=== PATIENT | female | born 1995 | race Caucasian/White ===

== ENCOUNTER 2020-04-23 10:42 | Emergency (ER) | payer OTHER ==
[~2020-04-23] VITALS: Ht 144.8 cm; Wt 70.3 kg
[2020-04-23 10:53] VITALS: BP 127/87
--- NOTE | 2020-04-23 11:06 | NUR ---
PT TAKEN TO BED 4.
[2020-04-23 13:04] VITALS: BP 120/80
== END 2020-04-23 13:00 | disposition home or self-care (01) ==
LOC: MED 10:42
DX: R07.9 Chest pain, unspecified (principal); Z91.013 Allergy to seafood
CPT/HCPCS: 71045; 93005; 99283